=== PATIENT | male | born 1985 | race Caucasian/White ===

== ENCOUNTER 2022-06-27 21:09 | Emergency (ER) | payer OTHER, SELFPAY ==
[2022-06-27] VITALS (11 sets, daily range): BP systolic 90–136; BP diastolic 60–86; PULSE 73–93; RESP 13–23; TEMP 36.7; O2SAT 94–96
--- NOTE | ~2022-06-27 | CT_ITS ---
EXAMINATION: CT brain wo con DATE: 06/27/2022 22:30 INDICATION: Altered mental status. TECHNIQUE: Computed tomography (CT) of the head was performed without intravenous contrast. The mA wa s adjusted according to patient size. Iterative reconstruction technique was employed. The dose-lengt h product was 983.67 mGy-cm. COMPARISON: None FINDINGS: There is no intracranial hemorrhage, acute infarction, or abnormal intracranial mass lesion . The ventricles are normal in size. The orbits are normal. The paranasal sinuses are clear. The mast oid air cells are normal. IMPRESSION: 1. Normal brain. Reviewed, dictated and finalized at location A. CAL CHEMIST IMPRESSION: 1. Normal brain.
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
[2022-06-27] MEDS: HALOPERIDOL LACTATE 5 MG/ML VIAL IM (21:47)
[2022-06-27] MEDS: LORazepam INJ (*CRX) 2 MG/ML VIAL IM ×2 (21:47→22:16)
[2022-06-27 22:17] LABS: Basophils Absolute Auto 0.1 K/mm3 (0.0-0.1); Basophils Percent Auto 0.4 % (0.2-1.2); Eosinophils Percent Auto 0.1 % (0-4.4); Hemoglobin 14.3 g/dL (14.0-18.0); Immature Granulocyte Absolute 0.04 K/mm3 (0.00-0.031); Immature Granulocyte Percent A 0.4 % (0-0.5); Lymphocytes Absolute Auto 1.58 K/mm3 (0.9-3.2); Lymphocytes Percent Auto 13.8 % (18.3-44.2); Mean Corpuscular Hemoglobin 30.6 pg (26-34); Mean Corpuscular Volume 89.9 fl (80-100); Mean Platelet Volume 8.5 fl (7.4-10.4); Monocytes Absolute Auto 1.3 K/mm3 (0.1-0.6); Monocytes Percent Auto 11.5 % (2.6-8.5); Neutrophils Absolute Auto 8.4 K/mm3 (1.3-6.7); Neutrophils Percent Auto 73.8 % (45.5-73.1); Platelet Count Result 269 k/mm3 (150-375); Red Blood Count 4.67 M/mm3 (4.6-6.20); Red Cell Distribution Width 11.7 % (11.5-14.5); White Blood Count 11.4 K/mm3 (4.5-10.0)
[2022-06-27 22:27] LABS: Acetaminophen < 10 ug/mL (10-30); Ethanol < 10 mg/dL (<10); Salicylate < 1.0 mg/dL (2-20)
[2022-06-27 22:28] LABS: Alanine Aminotransferase 19 U/L (6-50); Albumin Level 4.8 g/dL (3.5-5.1); Alkaline Phosphatase 54 U/L (38-126); Anion Gap 15 mmol/L (8-16); Aspartate Amino Transferase 30 U/L (17-59); Bilirubin,Total 0.7 mg/dL (0.2-1.3); Blood Urea Nitrogen 18 mg/dL (9-20); Calcium 9.1 mg/dL (8.4-10.2); Carbon Dioxide 22 mmol/L (22-30); Chloride 104 mmol/L (98-107); Estimated CRCL calculation 102 ml/min; Estimated Glomerular Filt Rate > 60; Glucose 104 mg/dL (65-110); Potassium 3.6 mmol/L (3.4-5.0); Sodium 141 mmol/L (137-145)
[2022-06-28] VITALS (69 sets, daily range): BP systolic 91–147; BP diastolic 55–97; PULSE 64–102; RESP 11–24; O2SAT 97–100
[2022-06-28 04:34] LABS: SARS-CoV-2 RNA PCR Negative
[2022-06-28 05:14] LABS: Barbiturate Screen Urine Negative (Negative); Benzodiazepines Screen Urine Negative (Negative)
[2022-06-28 05:16] LABS: Cannabinoid Screen Urine Negative (Negative); Cocaine Screen Urine Negative (Negative); Methadone Screen Urine Negative (Negative); Opiate Screen Urine Negative (Negative); Phencyclidine Screen Urine Negative (Negative)
[2022-06-28 05:21] LABS: Appearance Urine Cloudy (Clear); Bilirubin Urine 1+ (Negative); Blood Urine Negative (Negative); Color Urine Yellow (Yellow); Glucose Urine UA Negative (Negative); Ketones Urine 2+ mg/dL (Negative); Leukocyte Esterase Ur Negative LEU/UL (Negative); Nitrate Urine Negative (Negative); Protein Urine 1+ mg/dL (Negative); Urobilinogen Urine 0.2 mg/dL (<2.0)
[2022-06-28 05:32] LABS: Mucus Urine Moderate /lpf; WBC Urine 16-20 /hpf
[2022-06-28 05:35] LABS: Add Urine Microscopic? YES
[2022-06-28 05:39] LABS: Amphetamine Screen Urine Positive (Negative)
--- NOTE | 2022-06-28 07:57 | PC.NURSE ---
PD at bedside
== END 2022-06-28 09:50 ==
PROVIDERS: Emergency Medicine; Emergency Provider Emergency Medicine
DX: R45.6 Violent behavior (principal); F15.10 Other stimulant abuse, uncomplicated; Z20.822 Contact with and (suspected) exposure to COVID-19
CPT/HCPCS: 36415; 70450; 80053; 80307; 81001; 84443; 85025; 87086; 96372; 99284; J1630; J2060; U0003; U0005